=== PATIENT | female | born 1960 | race Caucasian/White ===

== ENCOUNTER 2017-01-28 18:45 | Emergency (ER) | payer OTHER ==
[2017-01-28 18:49] VITALS: TEMP 98.4
[2017-01-28] MEDS ORDERED: RANITIDINE 50 MG/2 ML VIAL IVP ONE (19:03)
[2017-01-28] MEDS ORDERED: methylPREDNISolone SOD SUCC 125 MG/2 ML VIAL IVP ONE (19:03)
[2017-01-28] MEDS ORDERED: NS 1,000 ML IV ONE (19:03)
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
--- NOTE | 2017-01-28 19:51 | CPEKG ---
Heart Rate: 63 RR Interval: 952 P-R Interval: 144 QRSD Interval: 94 QT Interval: 388 QTC Interval: 398 P [place]: 58 QRS [place]: 38 T Wave [place]: 14 EKG Severity - NORMAL ECG - EKG Impression: SINUS RHYTHM Electronically Signed By: Declan Chavez 28-Jan-2017 20:38:38
[2017-01-28 20:03] LABS: % IMMATURE GRANULYOCYTES 0.3 % (0.0-1.1); ABSOLUTE IMMATURE GRANULOCYTES 0.03 10^3/uL (0.00-0.10); ADD DIFF? NO; ADD MORPH? NO; ADD SCAN? NO; ATYPICAL LYMPHOCYTE FLAG 0 (0-99); FRAGMENT RBC FLAG 0 (0-99); HEMATOCRIT 44.2 % (38.0-47.0); HEMOGLOBIN 15.2 g/dL (12.6-16.3); LEFT SHIFT FLG 0 (0-99); LIPEMIA HEMOLYSIS FLAG 90 (0-99); MEAN CELL HEMOGLOBIN 32.5 pg (27.9-34.1); MEAN CELL HEMOGLOBIN CONCENTR. 34.4 g/dL (32.4-36.7); MEAN CELL VOLUME 94.6 fL (81.5-99.8); MEAN PLATELET VOLUME 11.5 fL (8.7-11.7); PLATELET CLUMPS FLAG 0 (0-99); PLATELET COUNT 181 10^3/uL (150-400); RED BLOOD CELL COUNT 4.67 10^6/uL (4.18-5.33); RED CELL DISTRIBUTION WIDTH 14.4 % (11.5-15.2)
[2017-01-28 20:22] LABS: ANION GAP 12 mEq/L (8-16); CALCIUM 9.2 mg/dL (8.5-10.4); CARBON DIOXIDE 24 mEq/l (22-31); CHLORIDE 100 mEq/L (97-110); CREATININE 0.7 mg/dL (0.6-1.0); GLOMERULAR FILTRATION RATE > 60; GLUCOSE 105 mg/dL (70-100); SODIUM 136 mEq/L (134-144)
[2017-01-28 21:24] VITALS: BP 114/67; PULSE 67; RESP 16; O2SAT 94
== END 2017-01-28 21:23 | disposition home or self-care (01) ==
DX: T63.441A Toxic effect of venom of bees, accidental (unintentional), initial encounter (principal); R55 Syncope and collapse; E86.9 Volume depletion, unspecified
CPT/HCPCS: 96374; J2780

== ENCOUNTER 2017-02-24 17:33 | Emergency (ER) | payer OTHER ==
[2017-02-24 17:40] VITALS: RESP 16; TEMP 97.9; O2SAT 97
[2017-02-24] MEDS ORDERED: FAMOTIDINE 20 MG TAB PO ONE (17:57)
[2017-02-24] MEDS ORDERED: predniSONE 20 MG TAB PO ONE (17:58)
[2017-02-24] MEDS ORDERED: diphenhydrAMINE 25 MG CAP PO ONE (17:58)
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
[2017-02-24 18:51] VITALS: BP 121/60; PULSE 80
== END 2017-02-24 18:52 | disposition home or self-care (01) ==
LOC: EDUNIT#
DX: T63.441A Toxic effect of venom of bees, accidental (unintentional), initial encounter (principal); Z85.3 Personal history of malignant neoplasm of breast